=== PATIENT | female | born 1990 | race Caucasian/White ===

== ENCOUNTER 2016-06-09 11:39 | Inpatient (IN) | payer MEDICAID, OTHER ==
[~2016-06-09] VITALS: Ht 152.4 cm; Wt 56.7 kg
[2016-06-09 11:45] VITALS: BP 139/80
--- NOTE | 2016-06-09 12:10 | NUR ---
Patient ambulated to bed 05.
--- NOTE | 2016-06-09 12:15 | NUR ---
PT PRESENTS TO ER W/C/O ABDOMINAL PAIN SINCE 0800. PT DENIES ANY OTHER MEDICAL HX. DENIES DIARRHEA; SKIN IS PINK/WARM/DRY; AAOX4 WITH EVEN AND STEADY GAIT; LUNGS CLEAR BL; HR EVEN AND REGULAR; PT DENIES ANY FEVER, CP, SOB, OR COUGH AT THIS TIME; PATIENT STATES PAIN OF 8/10 AT THIS TIME; VSS; PATIENT POSITIONED FOR COMFORT; HOB ELEVATED; BEDRAILS UP X2; BED DOWN. ER MD MADE AWARE OF PT STATUS.
--- NOTE | 2016-06-09 12:16 | NUR ---
DR BLOUNT ASSESSING THE PT AT BEDSIDE
[2016-06-09] MEDS ORDERED: ONDANSETRON 4 MG/2 ML VIAL IVP ONE (12:20)
[2016-06-09] MEDS ORDERED: NACL 0.9% 1,000 ML IV ONE (12:20)
[2016-06-09] MEDS ORDERED: KETOROLAC 30 MG/ML VIAL IVP ONE (12:20)
[2016-06-09] MEDS ORDERED: FAMOTIDINE 20 MG/2 ML VIAL IVP ONE (12:20)
--- NOTE | 2016-06-09 12:33 | NUR ---
AAO PT AMBULATES TO THE RESTROOM FOR URINE SAMPLE
[2016-06-09 12:34] LABS: BASOPHILS # (AUTO) 0.4 K/uL (0.00-0.22); BASOPHILS % (AUTO) 2.6 % (0.0-2.0); EOSINOPHILS # (AUTO) 0.3 K/uL (0-0.4); EOSINOPHILS % (AUTO) 1.9 % (0.0-4.0); HEMATOCRIT 38.2 % (36-48); HEMOGLOBIN 12.9 g/dL (12.0-16.0); LYMPHOCYTES # (AUTO) 0.7 K/uL (2.5-16.5); LYMPHOCYTES % (AUTO) 4.3 % (20.5-51.1); MEAN CORPUSCULAR HEMOGLOBIN 28 pg (27-31); MEAN CORPUSCULAR HGB CONC 34 g/dL (33-37); MEAN CORPUSCULAR VOLUME 83 fL (80-94); MONOCYTES # (AUTO) 0.7 K/uL (0.8-1.0); MONOCYTES % (AUTO) 3.9 % (1.7-9.3); NEUTROPHILS # (AUTO) 14.9 K/uL (1.8-7.7); NEUTROPHILS % (AUTO) 87.3 % (42.2-75.2); PLATELET COUNT (AUTO) 207 K/uL (140-450); RED BLOOD CELL COUNT(AUTO) 4.61 MIL/uL (4.20-5.40)
[2016-06-09 12:47] LABS: ANION GAP 9.5 (8-16); CALCIUM 9.3 mg/dL (8.5-10.1); CARBON DIOXIDE 29.6 mmol/L (21-32); CREATININE 0.6 mg/dL (0.6-1.3); POTASSIUM 4.1 mmol/L (3.5-5.1)
[2016-06-09 12:52] LABS: ALBUMIN 3.9 g/dL (3.4-5.0); TOTAL BILIRUBIN 0.5 mg/dL (0.0-1.0); TOTAL PROTEIN, SERUM 7.6 g/dL (6.4-8.2)
[2016-06-09 12:56] LABS: INR 1.2 (0.8-1.2); PARTIAL THROMBOPLASTIN TIME 29.7 secs (22-35.6)
[2016-06-09] MEDS ORDERED: PIPERACILLIN/TAZOBACTAM 3.375 GM in DEXTROSE 5% 50 ML IV ONE (13:25)
[2016-06-09 13:39] LABS: APPEARANCE,URINE HAZY (CLEAR); BILIRUBIN,URINE NEGATIVE (NEGATIVE); BLOOD, URINE NEGATIVE (NEGATIVE); COLOR,URINE YELLOW (YELLOW); LEUKOCYTE ESTERASE ,URINE NEGATIVE (NEGATIVE); NITRITE, URINE NEGATIVE (NEGATIVE); PROTEIN,URINE TRACE (NEGATIVE); UGLUCOSE NEGATIVE (NEGATIVE); UROBILINOGEN,URINE 0.2 EU/dL (0.2 - 1)
--- NOTE | 2016-06-09 13:56 | NUR ---
Patient back from CT via wheelchair per tech.
[2016-06-09 14:00] LABS: BACTERIA,URINE 1+ /HPF (None Seen); RBC,URINE 0-5 /HPF (0-5); SQUAMOUS EPITHELIAL CELL,UR 20-30 /LPF (0-3 (FEW))
[2016-06-09 14:01] LABS: MUCUS,URINE 3+ /LPF (None Seen)
[2016-06-09 14:27] VITALS: BP 134/74
[2016-06-09] MEDS ORDERED: PIPERACILLIN/TAZOBACTAM 3.375 GM VIAL IV ONE (14:40)
--- NOTE | 2016-06-09 15:55 | NUR ---
Patient will be admitted to care of DR STONER. Admited to MS. Will go to room 111B. Belongings list completed. Report to DEMIAN HEREDIA.
[2016-06-09] MEDS: NACL 0.9% 1,000 ML IV SCH (16:12)
[2016-06-09] MEDS ORDERED: MORPHINE SULFATE 2 MG/ML SYR IVP PRN (16:15)
[2016-06-09] MEDS ORDERED: ONDANSETRON 4 MG/2 ML VIAL IVP PRN (16:15)
[2016-06-09] MEDS ORDERED: MORPHINE SULFATE 4 MG/ML SYR IVP PRN (16:15)
--- NOTE | 2016-06-09 16:27 | NUR ---
PT ARRIVED ON UNIT FROM ER VIA WHEELCHAIR. PT IS AAOX4. PT IS ON ROOM AIR. PT SHOWS NO S/S OF DISTRESS. PT DENIES ANY PAIN AT THIS TIME. IV NOTED ON R AC 22 GAUGE. SKIN IS INTACT. DISCUSSED PLAN OF CARE WITH PT. BED IS LOWERED WITH CALL LIGHT WITHIN REACH.
--- NOTE | 2016-06-09 19:10 | NUR ---
GAVE REPORT TO NIGHT NURSE. ENDORSED PT IN STABLE CONDITION.
--- NOTE | 2016-06-09 19:25 | NUR ---
RECEIVED REPORT FROM DEMIAN HEREDIA/SHERLY AT BEDSIDE. INITIAL ASSESSMENT COMPLETED. PT AAOX4. PT AMBULATORY, PT DENIES DISCOMFORT. PT'S SKIN IS INTACT. PT HAS IV TO RIGHT AC G 2O; ASYMPTOMATIC, PATENT AND INTACT. ORIENTED PT TO ROOM AND SURROUNDINGS AND USE OF CALL LIGHT. EXPLAINED PLAN OF CARE TO PT AND SHE VERBALIZES UNDERSTANDING. CALL LIGHT WITHIN REACH.
[2016-06-09] MEDS ORDERED: PIPERACILLIN/TAZOBACTAM 3.375 GM in DEXTROSE 5% 50 ML IV SCH (21:00)
--- NOTE | 2016-06-09 21:13 | NUR ---
PT COMPLAINING OF PAIN 06/24. VS WILL MEDICATE ORDERED.
[2016-06-09] MEDS: ACETAMINOPHEN 325 MG TAB PO PRN (21:15)
[2016-06-09] MEDS: PIPER/TAZO 3.375GM/D5W PREMIX 50 ML IV SCH (21:16)
--- NOTE | 2016-06-09 21:23 | NUR ---
2100 ANTIBIOTIC GIVEN. PT MEDICATED FOR PAIN. WILL CONTINUE TO MONITOR PT.
--- NOTE | 2016-06-09 23:25 | NUR ---
ROUNDS MADE. PT'S VS STABLE, PT DENIES PAIN AT THIS TIME. WILL CONTINUE TO MONITOR PT.
[2016-06-10] VITALS: BP 126/82
--- NOTE | 2016-06-10 01:30 | NUR ---
IV PUMP ALARMING, CHECKED ON PT. PT STABLE. IV PUMP FLUSHED AND INFUSING FLUIDS WELL. CALL LIGHT WITHIN REACH.
--- NOTE | 2016-06-10 04:16 | NUR ---
PT STABLE, SHE WOKE UP WHEN I WALKED IN TO CHECK ON HER. PT RESTING IN BED NOW. WILL CONTINUE TO MONITOR PT
[2016-06-10] MEDS: NACL 0.9% 1,000 ML IV SCH (04:50)
[2016-06-10] MEDS: PIPER/TAZO 3.375GM/D5W PREMIX 50 ML IV SCH ×2 (04:50→14:34)
--- NOTE | 2016-06-10 04:51 | NUR ---
0500 ZOSYN INFUSING NOW. WILL CONTINUE TO MONITOR PT.
[2016-06-10 06:27] LABS: BASOPHILS % (AUTO) 0.7 % (0.0-2.0); EOSINOPHILS # (AUTO) 0.2 K/uL (0-0.4); EOSINOPHILS % (AUTO) 3.2 % (0.0-4.0); HEMOGLOBIN 10.8 g/dL (12.0-16.0); LYMPHOCYTES # (AUTO) 1.4 K/uL (2.5-16.5); LYMPHOCYTES % (AUTO) 24.1 % (20.5-51.1); MEAN CORPUSCULAR HEMOGLOBIN 27 pg (27-31); MEAN CORPUSCULAR HGB CONC 33 g/dL (33-37); MEAN CORPUSCULAR VOLUME 83 fL (80-94); MONOCYTES # (AUTO) 0.6 K/uL (0.8-1.0); MONOCYTES % (AUTO) 10.7 % (1.7-9.3); NEUTROPHILS # (AUTO) 3.8 K/uL (1.8-7.7); NEUTROPHILS % (AUTO) 61.3 % (42.2-75.2); PLATELET COUNT (AUTO) 163 K/uL (140-450); RED BLOOD CELL COUNT(AUTO) 3.96 MIL/uL (4.20-5.40); RED CELL DISTRIBUTION WIDTH 14.2 % (11.6-13.7)
--- NOTE | 2016-06-10 07:00 | NUR ---
ENDORSED PLAN OF CARE TO DEMIAN DUBOIS. PT IN STABLE CONDITION.
[2016-06-10 07:14] LABS: ALBUMIN 3.1 g/dL (3.4-5.0); ANION GAP 12.1 (8-16); CALCIUM 8.1 mg/dL (8.5-10.1); CARBON DIOXIDE 26.5 mmol/L (21-32); CREATININE 0.5 mg/dL (0.6-1.3); POTASSIUM 3.6 mmol/L (3.5-5.1); TOTAL BILIRUBIN 0.7 mg/dL (0.0-1.0); TOTAL PROTEIN, SERUM 6.2 g/dL (6.4-8.2)
--- NOTE | 2016-06-10 07:20 | NUR ---
RECEIVED PT REPORT AT BEDSIDEBY NIGHT NURSE. PT IS AAOX4 AND ON ROOM AIR. PT SHOWS NO S/S OF DISTRESS. PT ON IVF RUNNING WITH IV NOTED AT R AC PATENT AND INTACT. SKIN IS INTACT. BED IS LOWERED, FLAT AND CALL LIGHT WITHIN REACH. PT DENIES PAIN. DISCUSSED PLAN OF CARE WITH PATIENT. PT VERBALIZED UNDERSTANDING. WILL CONTINUE TO MONITOR.
--- NOTE | 2016-06-10 07:52 | NUR ---
PATIENT HAS BEEN SCREENED AND CATEGORIZED MODERATE NUTRITION RISK. PATIENT WILL BE SEEN WITHIN 3-5 DAYS OF ADMISSION. 06/12/16-06/14/[address]
[2016-06-10 08:00] VITALS: BP 126/80
--- NOTE | 2016-06-10 09:20 | NUR ---
PT STATED SHE IS IN PAIN 5/10 AT RLQ OF THE ABD. WILL MEDICATE WITH PRN MEDS.
[2016-06-10] MEDS: ACETAMINOPHEN 325 MG TAB PO PRN (09:26)
--- NOTE | 2016-06-10 10:20 | NUR ---
PT IN BED SLEEPING.
--- NOTE | 2016-06-10 11:30 | NUR ---
PT FAMILY AT BEDSIDE. PT SHOWS NO S/S OF DISTRESS. WILL CONTINUE TO MONITOR.
--- NOTE | 2016-06-10 12:30 | NUR ---
PT EATING LUNCH. PT TOLERATING FULL LIQUID DIET.
--- NOTE | 2016-06-10 14:30 | NUR ---
PT SEEN BY DR. STONER. PT CLEARED TO DC IF DR. RAMU YEPEZ PT FOR DC.
--- NOTE | 2016-06-10 14:36 | NUR ---
FAXED INITIAL REVIEW TO [facility] [phone] PHONE SEAN [phone]
--- NOTE | 2016-06-10 14:50 | NUR ---
CALLED DR. GUALLPA. WAITING FOR CALL BACK.
--- NOTE | 2016-06-10 15:00 | NUR ---
CLEARED FOR DC BY DR GUALLPA.
--- NOTE | 2016-06-10 15:50 | NUR ---
PT IS DISCHARGED. ALL PAPERWORK SIGNED. ALL QUESTIONS ANSWERED. ALL BELONGINGS IN PT'S POSSESSION. IV DISCONTINUED WITH CANNULA INTACT. WRISTBAND REMOVED. OFFERED PT WHEELCHAIR, PATIENT REFUSED. PT AMB OUT OF UNIT WITH STEADY GAIT WITH FAMILY PRESENT AT SIDE. PT IN STABLE CONDITION.
== END 2016-06-10 15:50 | disposition home or self-care (01) | DRG 251 ==
LOC: MED 11:39 → MTU 16:16
PROVIDERS: ADMIT Hospitalist; ATTEND Hospitalist
DX: R10.30 Lower abdominal pain, unspecified (principal); D72.829 Elevated white blood cell count, unspecified; J45.909 Unspecified asthma, uncomplicated
CPT/HCPCS: 36415; 76705; 80053; 81001; 81025; 82150; 83690; 85025; 85610; 85730; 87081; 87086; 96361; 96365; 96375; 99285; J1885; J2405; J2543; J3490; J7030; J7060; Q0092

== ENCOUNTER 2016-08-24 13:47 | Emergency (ER) | payer OTHER ==
[~2016-08-24] VITALS: Ht 154.9 cm; Wt 56.3 kg
[2016-08-24 13:52] VITALS: BP 148/93
--- NOTE | 2016-08-24 14:41 | NUR ---
PATIENT PRESENTS TO ED WITH INTERMITTENT ABDOMINAL PAIN RADIATING STRAIGHT TO LOWER BACK . PT STATES . DENIES DYSURIA OR LOOSE/WATERY STOOLS SKIN IS PINK/WARM/DRY; AAOX4 WITH EVEN AND STEADY GAIT; LUNGS CLEAR BL; HR EVEN AND REGULAR; PT DENIES ANY FEVER, CP, SOB, OR COUGH AT THIS TIME; PATIENT STATES PAIN OF 7/10 AT THIS TIME; VSS; PATIENT POSITIONED FOR COMFORT; HOB ELEVATED; BEDRAILS UP X2; BED DOWN. ER MD MADE AWARE OF PT STATUS. Addendum: 08/24/16 at 1643 by MEDGIN Patient discharged with v/s stable. Written and verbal after care instructions given and explained. Patient alert, oriented and verbalized understanding of instructions. Ambulatory with steady gait. All questions addressed prior to discharge. ID band removed. Patient advised to follow up with PMD. Rx of MIRALAX/LACTULOSE given. Patient educated on indication of medication including possible reaction and side effects. Opportunity to ask questions provided and answered.
--- NOTE | 2016-08-24 15:31 | NUR ---
US AT BEDSIDE.
--- NOTE | 2016-08-24 15:50 | NUR ---
X-RAY AT BEDSIDE
[2016-08-24 16:45] VITALS: BP 118/78
== END 2016-08-24 16:45 | disposition home or self-care (01) ==
LOC: MED 13:47
DX: R10.31 Right lower quadrant pain (principal); R03.0 Elevated blood-pressure reading, without diagnosis of hypertension
CPT/HCPCS: 74000; 76700; 81002; 81025; 99284; Q0092

== ENCOUNTER 2019-01-31 11:14 | Emergency (ER) | payer OTHER ==
[~2019-01-31] VITALS: Ht 154.9 cm; Wt 56.7 kg
--- NOTE | 2019-01-31 11:15 | NUR ---
Pt taken to bed 12.
[2019-01-31 11:20] VITALS: BP 134/84
[2019-01-31] MEDS ORDERED: diphenhydrAMINE 50 MG/ML VIAL ONE (11:28)
[2019-01-31] MEDS ORDERED: FAMOTIDINE 20 MG TAB ONE (11:28)
--- NOTE | 2019-01-31 11:28 | NUR ---
DR FRANCES AT BEDSIDE
--- NOTE | 2019-01-31 11:28 | NUR ---
28 Y/O FEMALE PRESENTING WITH RASH/ITCHINESS IN THE UPPER EXTREMITIES, CHEST, BACK. PT PRESENTS WITH NO PROBLEM BREATHING OR OTHER SYMPTOMS. PER PT SHE HAD AN ENERGY DRINK AND A SANDWICH FROM A GAS STATION AROUND 1030 HOURS. PER PT NKA. NO MEDICAL HX. NO RX. DENIES N/V/D. SIDE RAIL X1.
[2019-01-31] MEDS ORDERED: FAMOTIDINE 20 MG TAB PO ONE (11:30)
[2019-01-31] MEDS ORDERED: diphenhydrAMINE 50 MG/ML VIAL IM ONE (11:30)
[2019-01-31 13:14] VITALS: BP 127/76
--- NOTE | 2019-01-31 13:14 | NUR ---
Patient discharged with v/s stable. Written and verbal after care instructions given and explained. Patient alert, oriented and verbalized understanding of instructions. Ambulatory with steady gait. All questions addressed prior to discharge. ID band removed. Patient advised to follow up with PMD. Rx of PEPCID AND CLARITIN given. Patient educated on indication of medication including possible reaction and side effects. Opportunity to ask questions provided and answered.
== END 2019-01-31 13:14 | disposition home or self-care (01) ==
LOC: MED 11:14
DX: T78.1XXA Other adverse food reactions, not elsewhere classified, initial encounter (principal); Z98.890 Other specified postprocedural states; X58.XXXA Exposure to other specified factors, initial encounter
CPT/HCPCS: 96372; 99283; J1200